=== PATIENT | female | born 1945 | race Asian ===

== ENCOUNTER → 2017-02-28 | Outpatient (CLI) | payer MEDICARE, OTHER | END | disposition home or self-care (01) | LOC: CFH 11:06 | PROVIDERS: ATTEND Family Medicine | DX: M51.36 Other intervertebral disc degeneration, lumbar region (principal); M51.34 Other intervertebral disc degeneration, thoracic region; M47.897 Other spondylosis, lumbosacral region; M47.894 Other spondylosis, thoracic region; J84.10 Pulmonary fibrosis, unspecified | CPT/HCPCS: 71020; 72072; 72110 ==

== ENCOUNTER → 2017-04-10 | Outpatient (CLI) | payer MEDICARE, OTHER | END | disposition home or self-care (01) | LOC: CFH 14:49 | PROVIDERS: ATTEND Family Medicine | DX: Z12.31 Encounter for screening mammogram for malignant neoplasm of breast (principal) | CPT/HCPCS: G0202 ==

== ENCOUNTER → 2017-08-06 | Outpatient (CLI) | payer MEDICARE, OTHER | END | disposition home or self-care (01) | LOC: CFH 11:45 | PROVIDERS: ATTEND Family Medicine | DX: Z13.820 Encounter for screening for osteoporosis (principal); M81.0 Age-related osteoporosis without current pathological fracture; Z78.0 Asymptomatic menopausal state | CPT/HCPCS: 77080 ==

== ENCOUNTER → 2017-12-19 | Outpatient (CLI) | payer MEDICARE, OTHER | END | disposition home or self-care (01) | LOC: CFH 12:13 | PROVIDERS: ATTEND Family Medicine | DX: R06.02 Shortness of breath (principal); J98.4 Other disorders of lung | CPT/HCPCS: 71046 ==

== ENCOUNTER → 2018-05-01 | Outpatient (CLI) | payer MEDICARE, OTHER | END | disposition home or self-care (01) | LOC: CFH 14:51 | PROVIDERS: ATTEND Family Medicine | DX: Z12.31 Encounter for screening mammogram for malignant neoplasm of breast (principal) | CPT/HCPCS: 77063; 77067 ==

== ENCOUNTER 2019-09-09 10:47 | Outpatient (CLI) | payer MEDICARE, OTHER | END 2019-09-09 23:59 | disposition home or self-care (01) | LOC: CFH 10:47 | PROVIDERS: ATTEND Family Medicine | DX: N95.8 Other specified menopausal and perimenopausal disorders (principal); M85.88 Other specified disorders of bone density and structure, other site | CPT/HCPCS: 77080 ==

== ENCOUNTER → 2019-10-22 | Outpatient (CLI) | payer MEDICARE, OTHER | END | disposition home or self-care (01) | LOC: CFH 11:16 | PROVIDERS: ATTEND Family Medicine | DX: R05 Cough (principal) | CPT/HCPCS: 71046 ==

== ENCOUNTER → 2020-06-15 | Outpatient (CLI) | payer MEDICARE, OTHER | END | disposition home or self-care (01) | LOC: CFH 13:22 | PROVIDERS: ATTEND Family Medicine | DX: R92.8 Other abnormal and inconclusive findings on diagnostic imaging of breast (principal); L03.211 Cellulitis of face; G37.8 Other specified demyelinating diseases of central nervous system; M89.8X8 Other specified disorders of bone, other site | CPT/HCPCS: 76380; 76642; 77065 ==

== ENCOUNTER 2020-12-14 08:57 | Outpatient (CLI) | payer MEDICARE, OTHER ==
[2020-12-14] MEDS ORDERED: GADOTERATE 7.5 MMOL/15 ML VIAL ONE (10:14)
== END 2020-12-14 23:59 | disposition home or self-care (01) ==
LOC: CFH 08:57
PROVIDERS: ATTEND Family Medicine
DX: N65.1 Disproportion of reconstructed breast (principal)
CPT/HCPCS: 77049; 77061; 77065; A9575; C8908; G0279

== ENCOUNTER → 2020-12-20 | Outpatient (CLI) | payer MEDICARE, OTHER | END | disposition home or self-care (01) | LOC: CFH 11:11 | PROVIDERS: ATTEND Family Medicine | DX: R06.02 Shortness of breath (principal) | CPT/HCPCS: 71046 ==

== ENCOUNTER → 2021-01-02 | Outpatient (CLI) | payer MEDICARE, OTHER | END | disposition home or self-care (01) | LOC: RAD 07:47 → EDSTATUS 08:00 | PROVIDERS: ATTEND Family Medicine | DX: I71.4 Abdominal aortic aneurysm, without rupture (principal) | CPT/HCPCS: 93978 ==

== ENCOUNTER → 2021-05-23 | Outpatient (CLI) | payer MEDICARE, OTHER | END | disposition home or self-care (01) | LOC: CFH 10:17 | PROVIDERS: ATTEND Family Medicine | DX: M85.88 Other specified disorders of bone density and structure, other site (principal); N95.9 Unspecified menopausal and perimenopausal disorder | CPT/HCPCS: 77080 ==